=== PATIENT | male | born 1990 | race Caucasian/White ===

== ENCOUNTER 2018-07-20 14:52 | Emergency (ER) | payer BC ==
[~2018-07-20] VITALS: Ht 180.3 cm; Wt 102.1 kg
[2018-07-20] MEDS ORDERED: TRAZODONE HCL50 MG PO (15:07)
[2018-07-20] MEDS ORDERED: MOBIC15 MG PO (15:07)
[2018-07-20] MEDS ORDERED: TESSALON PERLE100 MG PO (15:19)
[2018-07-20] MEDS ORDERED: ZPAK PO (15:19)
[2018-07-20 15:46] VITALS: BP 134/91
== END 2018-07-20 15:47 | disposition home or self-care (01) ==
LOC: M.ERS 14:52
DX: H66.92 Otitis media, unspecified, left ear (principal); G43.909 Migraine, unspecified, not intractable, without status migrainosus; Z88.0 Allergy status to penicillin; Z88.5 Allergy status to narcotic agent

== ENCOUNTER 2019-01-05 18:39 | Emergency (ER) | payer BC ==
[~2019-01-05] VITALS: Ht 180.3 cm; Wt 99.8 kg
[~2019-01-05 18:39] MED LIST: MOBIC15 MG PO; TESSALON PERLE100 MG PO; TRAZODONE HCL50 MG PO; ZPAK PO
[2019-01-05] MEDS ORDERED: IBUPROFEN 800800 M1 PO (19:48)
[2019-01-05 20:24] VITALS: BP 134/74
== END 2019-01-05 20:25 | disposition home or self-care (01) ==
LOC: M.ERS 18:39
DX: S80.11XA Contusion of right lower leg, initial encounter (principal); S80.812A Abrasion, left lower leg, initial encounter; L08.9 Local infection of the skin and subcutaneous tissue, unspecified; R03.0 Elevated blood-pressure reading, without diagnosis of hypertension; Z88.5 Allergy status to narcotic agent; Z88.0 Allergy status to penicillin; G43.909 Migraine, unspecified, not intractable, without status migrainosus; W18.39XA Other fall on same level, initial encounter; Y93.89 Activity, other specified; Y92.89 Other specified places as the place of occurrence of the external cause; Y99.8 Other external cause status

== ENCOUNTER 2020-10-14 16:11 | Emergency (ER) | payer OTHER ==
[~2020-10-14] VITALS: Ht 180.3 cm; Wt 102.1 kg
[~2020-10-14 16:11] MED LIST changes: +IBUPROFEN 800800 M1 PO
[2020-10-14] MEDS ORDERED: NORVASC10 MG PO (16:30)
[2020-10-14] MEDS ORDERED: GABAPENTIN600 M1 PO (16:30)
[2020-10-14] MEDS ORDERED: MOBIC7.5 MG PO (16:31)
[2020-10-14] MEDS ORDERED: ACID CONTROLLER20 MG PO (16:31)
[2020-10-14] MEDS ORDERED: FLEXERIL PO (17:40)
[2020-10-14] MEDS ORDERED: NAPROSYN500 MG PO (17:40)
[2020-10-14] MEDS ORDERED: MEDROLDOSEPACK PO (17:40)
[2020-10-14 17:51] VITALS: BP 147/82
== END 2020-10-14 17:51 | disposition home or self-care (01) ==
LOC: M.ERS 16:11
DX: M54.42 Lumbago with sciatica, left side (principal); G43.909 Migraine, unspecified, not intractable, without status migrainosus; G89.29 Other chronic pain; K21.9 Gastro-esophageal reflux disease without esophagitis; I10 Essential (primary) hypertension; Z88.5 Allergy status to narcotic agent; Z88.0 Allergy status to penicillin

== ENCOUNTER 2021-05-03 17:51 | Emergency (ER) | payer BC, OTHER ==
[~2021-05-03] VITALS: Ht 175.3 cm; Wt 108.9 kg
[~2021-05-03 17:51] MED LIST changes: +ACID CONTROLLER20 MG PO; +FLEXERIL PO; +GABAPENTIN600 M1 PO; +MEDROLDOSEPACK PO; +MOBIC7.5 MG PO; +NAPROSYN500 MG PO; +NORVASC10 MG PO
[2021-05-03 19:26] LABS: NUCLEATED RBCS 0 /100WBC; WBC 6.7 thou/uL (4.0-11.0)
[2021-05-03 19:28] LABS: ABSOLUTE EOSINOPHILS 0.2 thou/uL (0.0-0.7); ABSOLUTE LYMPHOCYTES 1.5 thou/uL (0.8-5.3); ABSOLUTE MONOCYTES 0.7 thou/uL (0.0-1.2); ABSOLUTE NEUTROPHILS 4.3 thou/uL (1.6-8.1); BASOPHILS 0.6 %; EOSINOPHILS 2.3 %; HEMATOCRIT 44.9 % (42.0-52.0); HEMOGLOBIN 15.1 gm/dL (14.0-18.0); LYMPHOCYTES 22.8 %; MCH 29.5 pg (26.0-34.0); MCHC 33.7 g/dL (28.0-37.0); MCV 87.3 fL (80.0-100.0); MPV 6.2 fl. (7.2-11.1); PLATELET COUNT* 356 thou/uL (150-400); POLYS 64.3 %; RBC 5.14 mil/uL (4.50-6.00); RDW-CV 13.6 % (10.5-14.5)
[2021-05-03 19:38] LABS: CALCIUM 8.8 mg/dL (8.5-10.1)
[2021-05-03 19:38] LABS: URINE BILIRUBIN NEGATIVE (Negative); URINE BLOOD NEGATIVE (Negative); URINE CLARITY CLEAR; URINE COLOR YELLOW; URINE GLUCOSE-RANDOM NEGATIVE (Negative); URINE KETONES NEGATIVE (Negative); URINE LEUKOCYTES-REFLEX NEGATIVE (Negative); URINE NITRITE-REFLEX NEGATIVE (Negative); URINE PROTEIN NEGATIVE (Negative)
[2021-05-03 19:43] LABS: ALBUMIN 3.9 g/dL (3.4-5.0); TOTAL BILIRUBIN 0.3 mg/dL (<0.1-1.0); TOTAL PROTEIN 7.8 g/dL (6.4-8.2)
[2021-05-03 19:46] LABS: AMP/METHAMP Negative (Negative); BARBITURATES Negative (Negative); BENZODIAZEPINES Negative (Negative); COCAINE Negative (Negative); METHADONE Negative (Negative); OPIATES Negative (Negative); PCP Negative (Negative); THC Negative (Negative)
[2021-05-03] MEDS ORDERED: BENTYL 10 MG CA10 M1 PO (21:04)
[2021-05-03] MEDS ORDERED: ZOFRAN ODT4 MG PO (21:04)
[2021-05-03 21:12] VITALS: BP 130/81
== END 2021-05-03 21:13 | disposition home or self-care (01) ==
LOC: M.ERS 17:51
PROVIDERS: Emergency Medicine
DX: R10.33 Periumbilical pain (principal); R10.2 Pelvic and perineal pain; R19.7 Diarrhea, unspecified; K92.1 Melena; G43.909 Migraine, unspecified, not intractable, without status migrainosus; K21.9 Gastro-esophageal reflux disease without esophagitis; I10 Essential (primary) hypertension; Z98.890 Other specified postprocedural states; Z79.899 Other long term (current) drug therapy; Z88.5 Allergy status to narcotic agent; Z88.0 Allergy status to penicillin